=== PATIENT | male | born 2000 | race Caucasian/White ===

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

== ENCOUNTER 2020-08-15 15:18 | Outpatient (CLI) | payer SELFPAY ==
--- NOTE | 2020-08-15 15:24 | XR_ITS ---
WS: [id number] CHEST 2 VIEWS HISTORY: REGULATED PROGRAM MONITORING COMPARISON: 11/17/2019 Lungs: Clear with no abnormality. No pleural effusion or pneumothorax. Cardiac size: Normal. Mediastinum/Aorta: Normal mediastinum. Bones: Normal. XR/XR chest 2V* [id number] IMPRESSION: Normal chest.
== END 2020-08-15 15:19 | disposition home or self-care (01) ==
LOC: RADWPI 15:21
PROVIDERS: Family Provider Family Medicine; PCP Family Medicine; Visit Provider Preventive Medicine Occupational Medicine
DX: Z13.6 Encounter for screening for cardiovascular disorders (principal)
CPT/HCPCS: 71046

== ENCOUNTER 2022-07-15 17:11 | Outpatient (CLI) | payer OTHER, SELFPAY ==
--- NOTE | 2022-07-15 17:20 | XR_ITS ---
WS: [id number] XR chest 2V* [id number] REASON FOR EXAM: REGULATED PROGRAM MONITERING FINDINGS: The chest is unchanged compared to 08/25/2020. Heart and mediastinum are within normal limits. Calcified granulomatous disease in both hemithoraces. No active pulmonary parenchymal or pleural disease noted. Moderate changes of degenerative spondylosis in the thoracic spine T8-T10. XR/XR chest 2V* [id number] IMPRESSION: No acute or subacute chest abnormality.
== END 2022-07-15 17:12 | disposition home or self-care (01) ==
PROVIDERS: PCP Family Medicine; Visit Provider Preventive Medicine Occupational Medicine
DX: Z13.6 Encounter for screening for cardiovascular disorders (principal)
CPT/HCPCS: 71046

== ENCOUNTER 2024-06-25 09:10 | Emergency (ER) | payer SELFPAY ==
[2024-06-25 09:27] VITALS: BP 132/68; PULSE 80; RESP 17; TEMP 36.9; O2SAT 95; BMI 25.0
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
[2024-06-25] MEDS: HYDROcodone-acetaminophen 7.5-325 mg Tablet 1 TAB PO (09:51)
[2024-06-25 11:12] VITALS: PULSE 73; O2SAT 96
--- NOTE | 2024-06-28 08:20 | DCPLANNER ---
Referral sent to Yoselin DENNY- Dr. Gerardo
== END 2024-06-25 11:15 | disposition home or self-care (01) ==
PROVIDERS: Emergency Provider Emergency Medicine; PCP Family Medicine
DX: S02.652A Fracture of angle of left mandible, initial encounter for closed fracture (principal); Y04.2XXA Assault by strike against or bumped into by another person, initial encounter; F51.9 Sleep disorder not due to a substance or known physiological condition, unspecified
CPT/HCPCS: 70450; 70486; 72125; 99284; J9999

== ENCOUNTER 2024-12-28 22:00 | Emergency (ER) | payer SELFPAY ==
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
[2024-12-28 22:12] VITALS: PULSE 79; RESP 16; TEMP 36.4; O2SAT 95; BMI 23.7
--- NOTE | 2024-12-28 22:27 | PC.NURSE ---
Patient refused to sit still to obtain blood pressure during triage.
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
== END 2024-12-29 00:01 | disposition home or self-care (01) ==
PROVIDERS: Emergency Provider Student in an Organized Health Care Education/Training Program; PCP Family Medicine
DX: S41.111A Laceration without foreign body of right upper arm, initial encounter (principal); S00.83XA Contusion of other part of head, initial encounter; Y35.891A Legal intervention involving other specified means, law enforcement official injured, initial encounter
CPT/HCPCS: 70486; 99284